=== PATIENT | female | born 1955 | race Caucasian/White ===

== ENCOUNTER 2023-05-18 14:12 | Emergency (ER) | payer MEDICARE, SELFPAY ==
[2023-05-18 14:17] VITALS: BP 115/86
[2023-05-18 14:37] LABS: % Basophils 0.1 % (0-2); % Eosinophils 3.9 % (0-6); % Immature Granulocytes 0.5 % (0-0.5); % Lymphocytes 11.4 % (20.5-51.1); % Monocytes 5.5 % (1.7-9.3); % Neutrophils 78.6 % (42.2-75.2); Absolute Eosinophils 0.3 10^3/uL (0-0.7); Absolute Monocytes 0.5 10^3/uL (0.1-0.6); Absolute Neutrophils 6.9 10^3/uL (1.4-6.5); Hematocrit 42.8 % (37.0-47.0); Hemoglobin 13.4 g/dL (12.0-16.0); Mean Corp Hgb Conc. 31.3 g/dL (33.0-37.0); Mean Corpuscular Hgb 28.8 pg (27.0-31.0); Mean Corpuscular Volume 91.8 fL (81.0-99.0); Mean Platelet Volume 9.4 fL (7.4-10.4); Nucleated Red Blood Cells % 0 %; Platelet Count 241 10^3/uL (130-400); Red Blood Cell Count 4.66 10^6/uL (4.20-5.40); Red Cell Dist. Width 15.5 % (11.5-14.5); White Blood Cell Count 8.8 10^3/uL (4.8-10.8)
[2023-05-18 14:51] LABS: ALT (SGPT) 18 U/L (0-35); AST (SGOT) 19 U/L (14-36); Albumin 3.8 g/dl (3.5-5.0); Alkaline Phosphatase 115 U/L (38-126); Blood Urea Nitrogen 19 mg/dl (7-17); Calcium 9.2 mg/dl (8.4-10.2); Carbon Dioxide 29 mmol/L (22-30); Chloride 102 mmol/L (98-107); Glucose 132 mg/dl (70-99); Sodium 135 mmol/L (135-145); Total Bilirubin 0.6 mg/dl (0.2-1.3); Total Protein 6.5 g/dl (6.3-8.2); eGFR > 60.00
[2023-05-18 14:53] LABS: INR 0.98; PT 12.8 Sec (11.4-14.6)
[2023-05-18 16:47] VITALS: BP 111/75
[2023-05-18 17:01] VITALS: BP 102/70
[2023-05-18 18:01] VITALS: BP 105/72
--- NOTE | 2023-05-18 18:12 | ED.GENMED ---
History of Present Illness
General
Chief Complaint: Vomiting Blood
Source: patient
Exam Limitations: none
Time Seen by Provider: 05/18/23 16:36
Nursing documentation reviewed up to this point in time: agreed with
Travel History
Have you had any contact with someone who has COVID-19?: No
Do you have any symptoms of coronavirus? Fever > 100 degrees, chills, cough, shortness of breath, sore throat, loss of taste or smell, muscle aches, or headache?: No
History of Present Illness
History of Present Illness:
67-year-old female with history of CVA, HTN, HLD, GERD, diverticulitis on Plavix and aspirin states 'I am only here because my son called the ambulance.' She states she vomited twice 'dark material,' earlier today. She denies abdominal pain,
denies shortness of breath or chest pain. She denies change in the color of her stool. Her appetite has been good. She did eat grape jam one hour before she vomited.
Past History
Past History
ED Past Medical History: HTN, Hypercholesterolemia and Other (Bone disorder, Diverticulitis)
ED Past Surgical History: (X2), Gynecological (Hysterectomy) and Orthopedic (Todd hip replacements, Right ankle replacement, Todd carpal tunnel, Left hand surgery, Back surgery)
Social History
Tobacco: Former smoker
Alcohol: None
Personal:
Living: with family
Employment: Retired
Family History
Family History: Other (Noncontributory)
Review of Systems
Review of Systems
Allergies reviewed?: Yes
All Other Systems: ROS reviewed and negative except as documented in HPI and ROS
Constitutional: Denies fever
Respiratory: Denies trouble breathing
Cardiac: Denies chest pain
ABD/GI: Denies abdominal pain, nausea or diarrhea
: Denies dysuria or difficulty voiding
Musculoskeletal: Reports joint pain (chronic)
Skin: Reports no symptoms
Neurological: Reports no symptoms
Phy Exam
Physical Exam
Physical Exam:
GENERAL: No acute distress. A&Ox3.
CONSTITUTIONAL: Afebrile.
EYES: clear, conjunctivae normal
ENMT: moist mucus membranes, Pharynx nl
RESPIRATORY: Regular respirations, nonlabored, lungs clear.
CARDIOVASCULAR: Regular rate and rhythm, no murmurs, no rubs.
GI: Soft, nontender, normal BS
Rectal: No stool:,Clear mucus, hematest negative
MUSCULOSKELETAL: Moves with ease. Well perfused.
SKIN: Warm, dry, pink
PSYCH: Normal mood and affect. Well kept, interactive and appropriate
NEUROLOGIC: Awake, alert and oriented. No focal neurological deficits
Course
Orders/Labs/Results
Orders:
Orders
05/18/23 14:18
CR Chest - 2 Views Urgent
Comment:
Reason For Exam: coughing up blood
05/18/23 14:25
Complete Blood Count/With Diff Urgent
Comprehensive Metabolic Panel Urgent
PT/INR [Prothrombin Time] Urgent
Abnormal Lab Results
05/18/23
14:25
MCHC 31.3 L g/dL
(33.0-37.0)
RDW 15.5 H %
(11.5-14.5)
Absolute Neuts (auto) 6.9 H 10^3/uL
(1.4-6.5)
Absolute Lymphs (auto) 1.0 L 10^3/uL
(1.2-3.4)
Neutrophils % 78.6 H %
(42.2-75.2)
Lymphocytes % 11.4 L %
(20.5-51.1)
BUN 19 H mg/dl
(7-17)
Glucose 132 H mg/dl
(70-99)
05/18/23 14:25
05/18/23 14:25
Vital Signs
Initial and Last Documented VS:
Initial Vital Signs
Temp Pulse Resp BP Pulse Ox
97.7 F 97 17 115/86 99
05/18/23 14:17 05/18/23 14:17 05/18/23 14:17 05/18/23 14:17 05/18/23 14:17
Last Documented Vital Signs
Temp Pulse Resp BP Pulse Ox
97.7 F 93 23 105/72 96
05/18/23 14:17 05/18/23 18:01 05/18/23 18:01 05/18/23 18:01 05/18/23 16:47
MDM/Problems Addressed
Differential Diagnosis Includes:
Upper GI bleed, ingestion of dark-colored food
MDM/Problems Addressed:
67-year-old female with history of CVA, HTN, HLD, GERD, diverticulitis on Plavix and aspirin states 'I am only here because my son called the ambulance.' She states she vomited twice 'dark material,' earlier today. She denies abdominal pain,
denies shortness of breath or chest pain. She denies change in the color of her stool. Her appetite has been good. She did eat grape jam one hour before she vomited.
NAD, no vomiting since her last episode at home
Physical exam is unremarkable
Abdomen benign, rectal exam, no stool, mucus hematest negative
*Critical Care Note
Total Time (30-74mins, 75-104mins- exclusive of procedures): Not Applicable
ED Attending Note
-
Portions of this chart may have been created with voice recognition software.� Occasional wrong word or��sound alike� substitutions may have occurred due to the inherent limitations of voice recognition software.
Discharge Plan
Departure
Patient Disposition: Home (Routine Discharge)
Date of Disposition: 05/18/23
Time of Disposition: 18:13
Patient with high blood pressure during this ER visit?: No
Condition: Good
Discharge Problem:
History of hematemesis
Prescriptions:
No Action
venlafaxine [Effexor XR] 150 MG capsule,extended release 24hr
150 mg PO DAILY
Rx Instructions:
Taken w/ 75mg = 225mg
zolpidem 10 MG tablet
10 mg PO HS
Patient Comments:
11/26/2022: last filled 11/05/22, 30 tabs for 30 days from [facility]#[id number]
atorvastatin 40 mg tablet
40 mg PO HS
carvedilol 6.25 mg tablet
6.25 mg PO BID
venlafaxine 75 mg capsule,extended release 24hr
75 mg PO DAILY
Rx Instructions:
taken w/ 150mg = 225mg
aspirin 81 mg Tablet,Delayed Release (Dr/Ec)
81 mg PO DAILY
acetaminophen 500 mg Tablet
1,000 mg PO TID PRN (Reason: mild pain)
diphenhydramine HCl [Benadryl] 25 mg Capsule
25 mg PO TID PRN (Reason: itching)
acetaminophen [acetaminophen] 325 mg tablet
650 mg PO Q4HPRN PRN (Reason: mild pain) Qty: 1 0RF
tramadol 50 mg tablet
25 - 50 mg PO Q6HPRN PRN (Reason: severe pain/breakthrough pain) Qty: 10 0RF
amoxicillin-pot clavulanate [amoxicillin-pot clavulanate] 875-125 mg tablet
1 tab PO Q12 Qty: 9 0RF
Referrals:
Mery Muller MD [Family Provider] -
Activity Restrictions/Additional Instructions:
As we discussed, your blood work is normal, no sign of worrisome bleeding.
Your chest xray is normal
I see no sign of blood in your rectal exam.
Keep your appointment with your doctor as scheduled on 05/23
Return here immediately for further vomiting blood, abdominal pain or feeling sicker in any way.
Interventions
Interventions:
*General Assessment Last Done: 05/18/23 18:44
*Neglect/Abuse Screening Last Done: 05/18/23 18:44
*ED COVID-19 Vaccine History Last Done: 05/18/23 18:44
*Nursing Disposition Last Done: 05/18/23 18:45
HH-Wghsra-Rffqpuocxd Assessment Last Done: 05/18/23 16:50
ED- Cardiac Assessment Last Done: 05/18/23 16:50
ED- Pulmonary Assessment Last Done: 05/18/23 16:50
Discharge Date and Time
Discharge Date/Time: 05/18/23 18:46
== END 2023-05-18 18:46 | disposition home or self-care (01) ==
LOC: EMR 14:12
PROVIDERS: EMERGENCY PHYSICIAN Emergency Medicine; FAMILY PHYSICIAN Family Medicine
DX: K92.0 Hematemesis (principal); I10 Essential (primary) hypertension; E78.00 Pure hypercholesterolemia, unspecified; K21.9 Gastro-esophageal reflux disease without esophagitis; Z87.891 Personal history of nicotine dependence
CPT/HCPCS: 99283; 71046; 80053; 85025; 85610

== ENCOUNTER → 2023-12-06 10:54 | Outpatient (REF) | payer MEDICARE, SELFPAY | LOC: RAD 10:54 | PROVIDERS: ATTENDING PHYSICIAN Family Medicine | DX: M25.512 Pain in left shoulder (principal) | CPT/HCPCS: 73030 ==

== ENCOUNTER → 2024-01-10 11:58 | Outpatient (REF) | payer MEDICARE, SELFPAY | LOC: PAVMRI 11:58 | PROVIDERS: ATTENDING PHYSICIAN Orthopaedic Surgery; FAMILY PHYSICIAN Family Medicine; OTHER PHYSICIAN Orthopaedic Surgery | DX: M19.012 Primary osteoarthritis, left shoulder (principal) | CPT/HCPCS: 73223; A9575 ==

== ENCOUNTER → 2024-01-25 09:26 | Outpatient (REF) | payer MEDICARE, SELFPAY | LOC: MRI 09:26 | PROVIDERS: ATTENDING PHYSICIAN Physician Assistant Surgical; FAMILY PHYSICIAN Family Medicine | DX: M54.16 Radiculopathy, lumbar region (principal); M41.86 Other forms of scoliosis, lumbar region | CPT/HCPCS: 72158; A9575 ==

== ENCOUNTER → 2024-02-24 08:53 | Outpatient (REF) | payer MEDICARE, SELFPAY | LOC: RAD 08:53 | PROVIDERS: ATTENDING PHYSICIAN Family Medicine | DX: R74.8 Abnormal levels of other serum enzymes (principal); R74.01 Elevation of levels of liver transaminase levels | CPT/HCPCS: 76700 ==

== ENCOUNTER 2024-03-19 10:52 | Emergency (ER) | payer MEDICARE, SELFPAY ==
[2024-03-19 11:27] VITALS: BP 143/80
--- NOTE | 2024-03-19 12:15 | ED.GENMED ---
History of Present Illness
<Gena Collins PA-C - Last Filed: 03/19/24 20:08>
General
Chief Complaint: Back Pain
Source: patient
Exam Limitations: none
Time Seen by Provider: 03/19/24 12:14
Nursing documentation reviewed up to this point in time: agreed with
History of Present Illness
History of Present Illness:
This is a 68 y/o female with a pmh of GERD, diverticulitis, HTN, HLP presents emergency department today with concerns of low back pain for the past week. Patient reports that this started after she fell. Patient reports that she does not recall
how she fell but remembers that she tripped and fell onto her bottom. Patient states that she was able to get up on her own without difficulty but did note that she had pain. She then fell again later in the week. After this time, her
reports that she was not able to get out of her bed due to the pain and she has a lot of pain when using her walker to ambulate around the house. Patient was requesting a Medrol Dosepak for her symptoms. Patient denies any fevers or chills, saddle
paresthesias, urinary or fecal incontinence.
Past History
<JAYCE Langley Last Filed: 03/19/24 20:08>
Past History
ED Past Medical History: HTN, Hypercholesterolemia and Other (Bone disorder, Diverticulitis)
ED Past Surgical History: (X2), Gynecological (Hysterectomy) and Orthopedic (Todd hip replacements, Right ankle replacement, Todd carpal tunnel, Left hand surgery, Back surgery)
Social History
Tobacco: Former smoker
Alcohol: None
Personal:
Living: with family
Employment: Retired
Family History
Family History: Other (Noncontributory)
Review of Systems
<JAYCE Langley Last Filed: 03/19/24 20:08>
Review of Systems
All Other Systems: ROS reviewed and negative except as documented in HPI and ROS
Phy Exam
<Gena Collins PA-C - Last Filed: 03/19/24 20:08>
Physical Exam
Physical Exam:
General: Patient is well appearing and in no acute distress; non-toxic
Skin: Warm and dry, no rashes or lesions
Head: Normocephalic, atraumatic
Eyes: Sclera non-icteric. EOMs intact. PERRLA.
Cardiac: Regular rate and rhythm, no murmurs
Peripheral Vascular: No lower extremity swelling or edema
Pulm: Normal respiratory effort
Musculoskeletal: Thoracic/lumbar midline tenderness to palpation no palpable bony deformities. Paraspinal tenderness noted as well. 5/5 strength in b/l lower extremities.
Neuro: CN II-XII intact, no focal neurologic deficits.
Psychiatric: Appropriate mood and affect.
Course
<Gena Collins PA-C - Last Filed: 03/19/24 20:08>
Orders/Labs/Results
Orders:
Orders
03/19/24 12:28
CR Lumbar Spine 2 Or 3 Views Urgent
Comment:
Reason For Exam: back pain following fall
CR Thoracic Spine 3 Views Urgent
Comment:
Reason For Exam: back pain following fall
03/19/24 14:28
Ketorolac [Toradol] 15 mg IM NOW STA
03/19/24 11:29
03/19/24 11:29
Vital Signs
Initial and Last Documented VS:
Initial Vital Signs
Temp Pulse Resp BP Pulse Ox
98.6 F 75 20 143/80 97
03/19/24 11:27 03/19/24 11:27 03/19/24 11:27 03/19/24 11:27 03/19/24 11:27
Last Documented Vital Signs
Temp Pulse Resp BP Pulse Ox
98.6 F 81 18 144/88 97
03/19/24 11:27 03/19/24 14:56 03/19/24 14:56 03/19/24 14:56 03/19/24 14:56
<Cee Martins DO - Last Filed: 03/19/24 14:30>
Orders/Labs/Results
Orders:
Orders
03/19/24 12:28
CR Lumbar Spine 2 Or 3 Views Urgent
Comment:
Reason For Exam: back pain following fall
CR Thoracic Spine 3 Views Urgent
Comment:
Reason For Exam: back pain following fall
03/19/24 14:28
Ketorolac [Toradol] 15 mg IM NOW STA
03/19/24 11:29
03/19/24 11:29
Vital Signs
Initial and Last Documented VS:
Initial Vital Signs
Temp Pulse Resp BP Pulse Ox
98.6 F 75 20 143/80 97
03/19/24 11:27 03/19/24 11:27 03/19/24 11:27 03/19/24 11:27 03/19/24 11:27
Last Documented Vital Signs
Temp Pulse Resp BP Pulse Ox
98.6 F 81 18 144/88 97
03/19/24 11:27 03/19/24 14:56 03/19/24 14:56 03/19/24 14:56 03/19/24 14:56
<Gena Collins PA-C - Last Filed: 03/19/24 20:08>
MDM/Problems Addressed
Differential Diagnosis Includes:
see below
MDM/Problems Addressed:
NUMBER AND COMPLEXITY OF PROBLEMS ADDRESSED AT THE ENCOUNTER
� Chronic conditions affecting care: Hypertension, hyperlipidemia, trichorhinophalangeal syndrome, GERD
� Acute Exacerbation and/or Progression of Chronic Illness: arthritis
� Differential Diagnosis includes: osteoarthritis, compression fracture, transverse process fracture
AMOUNT AND/OR COMPLEXITY OF DATA TO BE REVIEWED AND ANALYZED
� I performed an independent evaluation of and my interpretation is:
X-rays: compression deformities noted
Laboratory Studies: not applicable at this time
Other:
� Review of other/old records: Reviewed previous ER physician documentation from 05/18/2023, patient seen for hematemesis
� Clinical information was obtained by an independent historian:
� Prescriptions/Medications Considered but not given: none
� Further testing considered but not performed: n/a
RISK OF COMPLICATIONS AND/OR MORBIDITY OR MORTALITY OF PATIENT MANAGEMENT
� Social determinants of health affecting care: none
� Discussion with other providers: ER attending
� Escalation of care including admission/observation vs risk of discharge considered:
68-year-old female with a past medical history of hypertension arthritis presents emergency department today with concerns of low back pain following a fall. Patient reports that she fell twice at home. She is currently requesting a Medrol Dosepak
for her symptoms. Her lumbar spine x-ray demonstrates 5% compression fractures. There are endplate of L1 and L2. This may have been a result of her fall. Will send Medrol Dosepak to her pharmacy, discussed other forms of pain management as well.
Discussed follow-up with patient's orthopedist. Patient stable for discharge, able to ambulate with assistance
<Gena Collins PA-C - Last Filed: 03/19/24 20:08>
*Pulse Oximetry
Patient hypoxic: no
*Critical Care Note
Total Time (30-74mins, 75-104mins- exclusive of procedures): Not Applicable
ED Attending Note
<Gena Collins PA-C - Last Filed: 03/19/24 20:08>
-
Portions of this chart may have been created with voice recognition software.� Occasional wrong word or��sound alike� substitutions may have occurred due to the inherent limitations of voice recognition software.
<Cee Martins DO - Last Filed: 03/19/24 14:30>
ED Attending Note
Patient seen and examined by attending physician: Yes
I performed the substantive portion of visit, reviewed & personally made and approve the management plan that is documented in note by myself or LUIS E.: Yes
ED Attending Note:
68-year-old female presenting to the emergency department after a fall. Patient reports she fell, and landed on her back. Denies head injury or loss this. She is not on any blood thinners. Denies any bowel or bladder issues. Denies numbness or
tingling to her extremities. Denies fever or recent illness. Vital signs are normal on arrival.
On exam, patient is resting comfortably, no acute distress or discomfort. GCS of 15 without any signs of head trauma. No current indication for head imaging. Patient with generalized tenderness to thoracic and lumbar spine, range of motion to all
extremities intact with sensation intact. No red flag symptoms, without concern for spinal compromise. Plan for x-ray imaging and supportive therapy.
14:30 -patient with crush injury from L1-L2. She is ambulating without difficulty. Feel stable for discharge. She is requesting Medrol Dosepak. Will provide. Otherwise stable for discharge with outpatient orthopedic follow-up.
Discharge Plan
Departure
Patient Disposition: Home (Routine Discharge)
Date of Disposition: 03/19/24
Time of Disposition: 14:32
Patient with high blood pressure during this ER visit?: Yes
Condition: Good
Discharge Problem:
Compression deformity of vertebra
Instructions: Low Back Pain (DC), BLOOD PRESSURE
Prescriptions:
New
methylprednisolone [Medrol (Benjamin)] 4 mg tablets,dose pack
See Rx Instructions .ROUTE .COMPLEX Qty: 21 0RF
Rx Instructions:
orally per package directions
No Action
venlafaxine [Effexor XR] 150 MG capsule,extended release 24hr
150 mg PO DAILY
Rx Instructions:
Taken w/ 75mg = 225mg
zolpidem 10 MG tablet
10 mg PO HS
Patient Comments:
11/26/2022: last filled 11/05/22, 30 tabs for 30 days from [id number]
atorvastatin 40 mg tablet
40 mg PO HS
carvedilol 6.25 mg tablet
6.25 mg PO BID
venlafaxine 75 mg capsule,extended release 24hr
75 mg PO DAILY
Rx Instructions:
taken w/ 150mg = 225mg
aspirin 81 mg Tablet,Delayed Release (Dr/Ec)
81 mg PO DAILY
acetaminophen 500 mg Tablet
1,000 mg PO TID PRN (Reason: mild pain)
diphenhydramine HCl [Benadryl] 25 mg Capsule
25 mg PO TID PRN (Reason: itching)
acetaminophen [acetaminophen] 325 mg tablet
650 mg PO Q4HPRN PRN (Reason: mild pain) Qty: 1 0RF
tramadol 50 mg tablet
25 - 50 mg PO Q6HPRN PRN (Reason: severe pain/breakthrough pain) Qty: 10 0RF
amoxicillin-pot clavulanate [amoxicillin-pot clavulanate] 875-125 mg tablet
1 tab PO Q12 Qty: 9 0RF
Referrals:
Billy Castillo MD [Active] - Call in 1-3 days for appt
Mery Muller MD [Family Provider] -
Activity Restrictions/Additional Instructions:
Your x-ray demonstrated new 5% compression fracture of the superior endplate of L1 and L2.
Medrol dose pack has been sent to your pharmacy. Please follow up with your orthopedist.
PLEASE RETURN TO EMERGENCY DEPARTMENT SHOULD YOU EXPERIENCE CHEST PAIN, SHORTNESS OF BREATH, URINARY FECAL INCONTINENCE, DIFFICULTY WALKING, WEAKNESS, NUMBNESS OR TINGLING IN THE GENITALS, FAINTING SPELLS, OR ANY OTHER SIGNS OR SYMPTOMS CONCERNING
TO YOU.
Interventions
Interventions:
*Risk Screen - Suicide Last Done: 03/19/24 14:56
*General Assessment Last Done: 03/19/24 12:32
*Neglect/Abuse Screening Last Done: 03/19/24 14:56
ED- Fall Risk Assessment Last Done: 03/19/24 12:32
*ED COVID-19 Vaccine History Last Done: 03/19/24 12:32
*Nursing Disposition Last Done: 03/19/24 14:56
ED-Musculoskeletal Assessment Last Done: 03/19/24 12:32
Discharge Date and Time
Discharge Date/Time: 03/19/24 14:58
Print Language: SLOVAK
[2024-03-19] MEDS: TORADOL 15 MG IM (14:45)
[2024-03-19 14:56] VITALS: BP 144/88
== END 2024-03-19 14:58 | disposition home or self-care (01) ==
LOC: EMR 10:52
PROVIDERS: EMERGENCY PHYSICIAN Student in an Organized Health Care Education/Training Program; FAMILY PHYSICIAN Family Medicine
DX: M43.8X5 Other specified deforming dorsopathies, thoracolumbar region (principal); K21.9 Gastro-esophageal reflux disease without esophagitis; I10 Essential (primary) hypertension; E78.00 Pure hypercholesterolemia, unspecified; Z87.891 Personal history of nicotine dependence; Z90.710 Acquired absence of both cervix and uterus; Z96.661 Presence of right artificial ankle joint; Z96.662 Presence of left artificial ankle joint
CPT/HCPCS: 99283; 96372; 72072; 72100